=== PATIENT | male | born 1985 ===

== ENCOUNTER 2020-06-27 00:46 | Outpatient (CLI) | payer OTHER, SELFPAY ==
[2020-06-27 18:41] LABS: SARS-CoV-2 RNA PCR Negative
== END 2020-06-27 00:47 | disposition home or self-care (01) ==
LOC: ANHCOVIDDT 00:46
PROVIDERS: PCP Family Medicine; Visit Provider Surgery
DX: Z01.812 Encounter for preprocedural laboratory examination (principal); Z20.828 Contact with and (suspected) exposure to other viral communicable diseases
CPT/HCPCS: 87635; C9803; U0003